=== PATIENT | female | born 1990 | race Two or more races ===

== ENCOUNTER 2023-11-09 08:07 | Emergency (ER) | payer OTHER ==
[~2023-11-09] VITALS: Ht 160 cm; Wt 71.4 kg
[2023-11-09 08:31] VITALS: BP 117/61; PULSE 72; RESP 16; TEMP 98.4; O2SAT 97
[2023-11-09 08:49] LABS: Urine Bacteria FEW /hpf (None Seen); Urine Blood Negative /uL (Negative); Urine Budding Yeast OCCASIONAL /hpf (None Seen); Urine Clarity Clear (Clear); Urine Color Light-Yellow (Yellow); Urine Mucus FEW (None Seen); Urine Protein, UAD Negative (Negative); Urine Specific Gravity 1.018 (1.001-1.035); Urine Urobilinogen Normal (Negative); Urine WBC 4 /hpf (0 - 5); Urine pH 5.5 (5.0-9.0)
== END 2023-11-09 09:21 | disposition home or self-care (01) ==
LOC: ER 08:07
DX: O26.892 Other specified pregnancy related conditions, second trimester (principal); R10.2 Pelvic and perineal pain; Z3A.16 16 weeks gestation of pregnancy
CPT/HCPCS: 76805; 81001; 81025

== ENCOUNTER 2024-01-31 01:53 | Observation (INO) | payer OTHER ==
[~2024-01-31] VITALS: Ht 160 cm; Wt 72.6 kg
== END 2024-01-31 05:44 | disposition home or self-care (01) ==
LOC: LDRP 01:53
PROVIDERS: ADMIT Obstetrics & Gynecology; ATTEND Obstetrics & Gynecology
DX: O26.893 Other specified pregnancy related conditions, third trimester (principal); M25.562 Pain in left knee; M25.561 Pain in right knee; W18.39XA Other fall on same level, initial encounter; Y93.89 Activity, other specified; Y92.89 Other specified places as the place of occurrence of the external cause; Y99.8 Other external cause status; Z3A.28 28 weeks gestation of pregnancy
CPT/HCPCS: 59025; 76805; 81002; 94760; G0378

== ENCOUNTER 2024-01-31 06:18 | Emergency (ER) | payer OTHER ==
[~2024-01-31] VITALS: Ht 160 cm; Wt 72.7 kg
[2024-01-31 07:24] VITALS: BP 109/70; PULSE 68; RESP 16; TEMP 97.8; O2SAT 100
== END 2024-01-31 07:38 | disposition home or self-care (01) ==
LOC: ER 06:18
DX: Z00.00 Encounter for general adult medical examination without abnormal findings (principal); W01.0XXA Fall on same level from slipping, tripping and stumbling without subsequent striking against object, initial encounter; Y93.89 Activity, other specified; Y92.89 Other specified places as the place of occurrence of the external cause; Y99.8 Other external cause status